=== PATIENT | female | born 1995 | race Caucasian/White ===

== ENCOUNTER 2017-10-14 17:50 | Inpatient (IN) | payer OTHER ==
[~2017-10-14] VITALS: Ht 158 cm; Wt 74.8 kg
[2017-10-14 18:18] VITALS: BP 114/72
[2017-10-14] MEDS ORDERED: PREN1TAB80 PO (18:18)
[2017-10-14] MEDS ORDERED: RINGERS SOLUTION,LACTATED 1,000 ML IV PRN (20:50)
[2017-10-14] MEDS ORDERED: OXYTOCIN 30 UNITS/LACT RINGERS 500 ML IV ONE (20:50)
[2017-10-14] MEDS ORDERED: METOCLOPRAMIDE HCL 5 MG/ML 2 ML VIAL IVP PRN (21:00)
[2017-10-14] MEDS ORDERED: CITRIC ACID/SODIUM CITRATE 30 ML SOLUTION UDCUP PO PRN (21:00)
[2017-10-14] MEDS ORDERED: FentaNYL CITRATE-PF 100 MCG/2 ML VIAL IVP PRN (21:00)
[2017-10-14] MEDS: RINGERS SOLUTION,LACTATED 1,000 ML IV SCH (21:17)
[2017-10-14 21:40] LABS: BASOPHILS % (AUTO) 0.2 % (0.0-2.0); EOSINOPHILS % (AUTO) 0.9 % (1.0-6.0); HEMATOCRIT 34.3 % (36-46); HEMOGLOBIN 12.1 g/dL (12.0-16.0); LYMPHOCYTES # (AUTO) 2.4 K/uL (1.0-4.8); MEAN CORPUSCULAR HEMOGLOBIN 30.4 pg (26.0-34.0); MEAN CORPUSCULAR HGB CONC 35.2 G/dL (31.0-37.0); MEAN CORPUSCULAR VOLUME 86 fL (80-100); MONOCYTES # (AUTO) 0.8 K/uL (0.1-1.0); MONOCYTES % (AUTO) 8.3 % (2.0-9.0); NEUTROPHILS # (AUTO) 6.8 K/uL (1.8-7.7); NEUTROPHILS % (AUTO) 66.6 % (40.0-70.0); PLATELET COUNT (AUTO)-OB 252 K/uL (150-450); RED BLOOD CELL COUNT(AUTO) 3.97 MIL/uL (4.00-5.20); RED CELL DISTRIBUTION WIDTH 15.1 % (11.5-14.5)
[2017-10-15] MEDS: RINGERS SOLUTION,LACTATED 1,000 ML IV SCH ×2 (00:02→04:16)
[2017-10-15] MEDS ORDERED: LIDOCAINE HCL/PF 1% 30 ML VIAL INJ PRN (01:00)
[2017-10-15] MEDS ORDERED: OXYTOCIN 30 UNITS/LACT RINGERS 500 ML IV PRN (05:05)
[2017-10-15] MEDS ORDERED: OXYGEN THERAPY IH SCH (08:00)
[2017-10-15] MEDS ORDERED: ROPIVACAINE HCL/PF 0.2% 0 ML ED ONE (08:28)
[2017-10-15] MEDS ORDERED: LIDOCAINE HCL/PF 2% 5 ML VIAL ONE (08:28)
[2017-10-15] MEDS ORDERED: BUPIVACAINE HCL/PF 0.5% 10 ML VIAL ONE (08:28)
[2017-10-15] MEDS ORDERED: GLYCERIN/WITCH HAZEL LEAF 40 PADS JAR TP PRN (12:30)
[2017-10-15] MEDS ORDERED: BENZOCAINE 20%/MENTHOL 56 GM SPRAY CANISTER TP PRN (12:30)
[2017-10-15] MEDS ORDERED: MEASLES/MUMPS/RUBELLA VACCINE, LIVE 0.5 ML/VIAL SQ ONE (12:30)
[2017-10-15] MEDS ORDERED: LANOLIN 7 GM OINTMENT TP PRN (12:30)
[2017-10-15] MEDS ORDERED: ACETAMINOPHEN/CODEINE 300-30 MG TABLET PO PRN ×2 (12:30)
[2017-10-15] MEDS: IBUPROFEN 600 MG TABLET PO PRN (13:53)
[2017-10-15] MEDS: MAGNESIUM HYDROXIDE SUSPENSION 30 ML UDCUP PO SCH (21:11)
[2017-10-16] MEDS: IBUPROFEN 600 MG TABLET PO PRN ×2 (06:07→13:26)
[2017-10-16] MEDS: MAGNESIUM HYDROXIDE SUSPENSION 30 ML UDCUP PO SCH (09:00)
[2017-10-16] MEDS ORDERED: IBUP-2070 PO (10:56)
[2017-10-16] MEDS ORDERED: DOCU250C91 PO (10:57)
== END 2017-10-16 14:45 | disposition home or self-care (01) | DRG 775 ==
LOC: 4S 17:50 → OBSVTOIN 17:50
PROVIDERS: ADMIT Obstetrics & Gynecology Gynecology; ATTEND Obstetrics & Gynecology Gynecology
PROC: 10E0XZZ Delivery of Products of Conception, External Approach (ICD-10-PCS; principal; 2017-10-15)
PROC: 0DQR0ZZ Repair Anal Sphincter, Open Approach (ICD-10-PCS; 2017-10-15)
DX: O70.20 Third degree perineal laceration during delivery, unspecified (principal); Z37.0 Single live birth; Z3A.39 39 weeks gestation of pregnancy
CPT/HCPCS: 86850; 86900; 86901; 96374; J2590; J2795; J3490; J7120

== ENCOUNTER 2019-03-01 10:51 | Inpatient (IN) | payer OTHER ==
[~2019-03-01] VITALS: Ht 158 cm; Wt 70.8 kg
[~2019-03-01 10:51] MED LIST: DOCU250C91 PO; IBUP-2070 PO; PREN1TAB80 PO
[2019-03-01] MEDS ORDERED: RINGERS SOLUTION,LACTATED 1,000 ML IV SCH (11:12)
[2019-03-01] MEDS ORDERED: RINGERS SOLUTION,LACTATED 1,000 ML IV PRN (11:12)
[2019-03-01] MEDS ORDERED: OXYTOCIN 30 UNITS/LACT RINGERS 500 ML IV ONE (11:12)
[2019-03-01] MEDS ORDERED: CITRIC ACID/SODIUM CITRATE 30 ML SOLUTION UDCUP PO PRN (11:15)
[2019-03-01] MEDS ORDERED: METOCLOPRAMIDE HCL 5 MG/ML 2 ML VIAL IVP PRN (11:15)
[2019-03-01] MEDS ORDERED: FentaNYL CITRATE-PF 100 MCG/2 ML VIAL IVP PRN (11:15)
[2019-03-01] MEDS ORDERED: LIDOCAINE/PF 1% 30 ML VIAL INJ PRN (11:15)
[2019-03-01 12:17] LABS: BASOPHILS % (AUTO) 0.2 % (0.0-2.0); EOSINOPHILS % (AUTO) 0.4 % (1.0-6.0); HEMATOCRIT 31.4 % (36-46); HEMOGLOBIN 10.8 g/dL (12.0-16.0); LYMPHOCYTES # (AUTO) 1.6 K/uL (1.0-4.8); LYMPHOCYTES % (AUTO) 21.9 % (22.0-44.0); MEAN CORPUSCULAR HEMOGLOBIN 31.5 pg (26.0-34.0); MEAN CORPUSCULAR HGB CONC 34.5 G/dL (31.0-37.0); MEAN CORPUSCULAR VOLUME 91 fL (80-100); MONOCYTES # (AUTO) 0.4 K/uL (0.1-1.0); NEUTROPHILS # (AUTO) 5.2 K/uL (1.8-7.7); NEUTROPHILS % (AUTO) 71.5 % (40.0-70.0); PLATELET COUNT (AUTO) 254 K/uL (150-450); RED BLOOD CELL COUNT(AUTO) 3.44 MIL/uL (4.00-5.20); RED CELL DISTRIBUTION WIDTH 14.4 % (11.5-14.5)
[2019-03-01] MEDS ORDERED: OXYTOCIN 30 UNITS/LACT RINGERS 500 ML IV PRN (12:24)
[2019-03-01 12:43] VITALS: BP 96/53
[2019-03-01] MEDS ORDERED: ROPIVACAINE HCL/PF 0.2% 100 ML ED ONE (13:40)
[2019-03-01] MEDS ORDERED: LIDOCAINE/PF 2% 5 ML VIAL ONE (13:40)
[2019-03-01] MEDS ORDERED: ONDANSETRON HCL 4 MG/2 ML VIAL IVP PRN (14:00)
[2019-03-01] MEDS ORDERED: ROPIVACAINE HCL/PF 0.2% 100 ML ED PRN (14:00)
[2019-03-01] MEDS ORDERED: NALBUPHINE HCL 10 MG/ML VIAL IVP PRN (14:00)
[2019-03-01] MEDS ORDERED: DiphenhydrAMINE HCL 50 MG/ML VIAL IVP PRN (14:00)
[2019-03-01] MEDS ORDERED: OXYGEN THERAPY IH SCH (20:00)
[2019-03-01] MEDS ORDERED: RINGERS SOLUTION,LACTATED 1,000 ML IV ONE (21:17)
[2019-03-01] MEDS ORDERED: GLYCERIN/WITCH HAZEL LEAF 40 PADS JAR TP PRN (21:30)
[2019-03-01] MEDS ORDERED: LANOLIN 7 GM OINTMENT TP PRN (21:30)
[2019-03-01] MEDS ORDERED: OxyCODONE HCL/ACETAMINOPHEN 5-325 MG TABLET PO PRN ×2 (21:30)
[2019-03-01] MEDS ORDERED: BENZOCAINE 20%/MENTHOL 56 GM SPRAY CANISTER TP PRN (21:30)
[2019-03-01] MEDS ORDERED: IBUPROFEN 600 MG TABLET PO PRN (21:30)
[2019-03-01] MEDS ORDERED: MEASLES/MUMPS/RUBELLA VACCINE, LIVE 0.5 ML/VIAL SQ ONE (21:30)
[2019-03-02] MEDS ORDERED: MAGNESIUM HYDROXIDE SUSPENSION 30 ML UDCUP PO SCH (09:00)
[2019-03-02] MEDS ORDERED: IBUP-2071 PO (17:20)
[2019-03-02] MEDS ORDERED: FERR-89 PO (17:21)
[2019-03-02] MEDS ORDERED: DSS100 PO (17:21)
== END 2019-03-02 21:15 | disposition home or self-care (01) | DRG 807 ==
LOC: OBSVTOIN 10:51 → 4S 10:51
PROVIDERS: ADMIT Obstetrics & Gynecology; ATTEND Obstetrics & Gynecology
PROC: 10E0XZZ Delivery of Products of Conception, External Approach (ICD-10-PCS; principal; 2019-03-01)
PROC: 0UQGXZZ Repair Vagina, External Approach (ICD-10-PCS; 2019-03-01)
PROC: 3E0R3BZ Introduction of Anesthetic Agent into Spinal Canal, Percutaneous Approach (ICD-10-PCS; 2019-03-01)
PROC: 00HU33Z Insertion of Infusion Device into Spinal Canal, Percutaneous Approach (ICD-10-PCS; 2019-03-01)
DX: O71.4 Obstetric high vaginal laceration alone (principal); Z37.0 Single live birth; Z3A.39 39 weeks gestation of pregnancy
CPT/HCPCS: 86850; 86900; 86901; J2590; J2795; J3490; J7120